=== PATIENT | male | born 1995 | race Caucasian/White ===

== ENCOUNTER 2025-05-10 09:07 | Emergency (ER) | payer BC, MEDICAID, SELFPAY ==
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
[2025-05-10 09:11] VITALS: BP 133/77; PULSE 89; RESP 17; TEMP 36.7; O2SAT 96; BMI 35.6
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
[2025-05-10 10:18] VITALS: BP 132/94; PULSE 81; O2SAT 98
== END 2025-05-10 10:19 | disposition home or self-care (01) ==
PROVIDERS: Emergency Provider Physician Assistant
DX: S39.012A Strain of muscle, fascia and tendon of lower back, initial encounter (principal); V89.2XXA Person injured in unspecified motor-vehicle accident, traffic, initial encounter
CPT/HCPCS: 72100; 72170; 99284